=== PATIENT | female | born 1945 | race Caucasian/White ===

== ENCOUNTER → 2024-03-07 13:41 | Outpatient (REF) | payer MEDICARE, SELFPAY | LOC: WDC 13:41 | PROVIDERS: ATTENDING PHYSICIAN Family Medicine | DX: Z12.31 Encounter for screening mammogram for malignant neoplasm of breast (principal) | CPT/HCPCS: 77063; 77067 ==

== ENCOUNTER → 2024-04-21 11:31 | Outpatient (REF) | payer MEDICARE, SELFPAY | LOC: RAD 11:31 | PROVIDERS: ATTENDING PHYSICIAN Urology; FAMILY PHYSICIAN Family Medicine | DX: R31.0 Gross hematuria (principal) | CPT/HCPCS: 74178; Q9967 ==

== ENCOUNTER → 2024-05-17 09:44 | Outpatient (REF) | payer MEDICARE, SELFPAY | LOC: HWRAD 09:44 | PROVIDERS: ATTENDING PHYSICIAN Obstetrics & Gynecology Gynecology; FAMILY PHYSICIAN Family Medicine; REFERRING PHYSICIAN Urology | DX: N83.201 Unspecified ovarian cyst, right side (principal) | CPT/HCPCS: 76830; 76856 ==

== ENCOUNTER → 2024-07-07 09:34 | Outpatient (REF) | payer MEDICARE, SELFPAY ==
[2024-07-07 10:27] LABS: % Basophils 0.4 % (0-2); % Eosinophils 2.8 % (0-6); % Immature Granulocytes 0.2 % (0-0.5); % Lymphocytes 20.5 % (20.5-51.1); % Monocytes 6.1 % (1.7-9.3); Absolute Eosinophils 0.1 10^3/uL (0-0.7); Absolute Lymphocytes 0.9 10^3/uL (1.2-3.4); Absolute Monocytes 0.3 10^3/uL (0.1-0.6); Absolute Neutrophils 3.2 10^3/uL (1.4-6.5); Hematocrit 45.1 % (37.0-47.0); Hemoglobin 14.1 g/dL (12.0-16.0); Mean Corp Hgb Conc. 31.3 g/dL (33.0-37.0); Mean Corpuscular Hgb 28.4 pg (27.0-31.0); Mean Corpuscular Volume 90.7 fL (81.0-99.0); Nucleated Red Blood Cells % 0 %; Platelet Count 249 10^3/uL (130-400); Red Blood Cell Count 4.97 10^6/uL (4.20-5.40); Red Cell Dist. Width 13.8 % (11.5-14.5); White Blood Cell Count 4.6 10^3/uL (4.8-10.8)
[2024-07-07 11:01] LABS: ALT (SGPT) 18 U/L (0-35); AST (SGOT) 24 U/L (14-36); Albumin 4.1 g/dl (3.5-5.0); Alkaline Phosphatase 73 U/L (38-126); Blood Urea Nitrogen 17 mg/dl (7-17); Calcium 9.8 mg/dl (8.4-10.2); Carbon Dioxide 31 mmol/L (22-30); Chloride 104 mmol/L (98-107); Glucose 83 mg/dl (70-99); Potassium 4.8 mmol/L (3.5-5.1); Sodium 141 mmol/L (135-145); Total Bilirubin 0.5 mg/dl (0.2-1.3); Total Protein 6.8 g/dl (6.3-8.2); eGFR > 60.00
== END ==
LOC: REG 09:34
PROVIDERS: ATTENDING PHYSICIAN Obstetrics & Gynecology Gynecology
DX: N83.209 Unspecified ovarian cyst, unspecified side (principal); Z01.818 Encounter for other preprocedural examination
CPT/HCPCS: 36415; 80053; 85025; 93005

== ENCOUNTER → 2024-07-28 08:45 | Outpatient (REF) | payer MEDICARE, SELFPAY | LOC: CLAB 08:45 | PROVIDERS: ATTENDING PHYSICIAN Obstetrics & Gynecology Gynecology | DX: N83.209 Unspecified ovarian cyst, unspecified side (principal) | CPT/HCPCS: 88305; 88112 ==

== ENCOUNTER 2024-11-13 07:25 | Inpatient (IN) | payer MEDICARE, SELFPAY ==
--- NOTE | 2024-09-29 12:35 | CM ---
Addendum entered by Eileen Brewster RN 10/20/24 10:35:
Patient stated that she has not received call from PAT recruiting scheduler. CM contacted PAT recruiting scheduler and plan to call patient to make appointments today. CM updated patient.
Addendum entered by Eileen Brewster RN 09/29/24 12:39:
CM confirmed that patient's grandniece will provide transportation home and will stay with her for one night.
Original Note:
CM reviewed medical records. CM spoke with patient via live telephone. Patient confirmed demographics. Patient lives alone in a three story home. Patient had a history of VN, but does not remember the agency. Patient does not have a history of SNF.
Patient does have a cane, walker, raised toilet seat and ice gel wraps.
Patient advised that patient does not have transportation for outpatient PT and is requesting VN at home. CM advised that outpatient PT is recommended. Patient stated that she does not believe there is a difference in PT at home or outpatient.
Patient stated that she is able to drive to her appointments once she is cleared by orthopedics.
Patient is active with her PCP. Patient plans to uses [facility] in [place] for pharmacy services .
[2024-10-27 11:12] LABS: Hematocrit 42.6 % (37.0-47.0); Hemoglobin 13.9 g/dL (12.0-16.0); Mean Corp Hgb Conc. 32.6 g/dL (33.0-37.0); Mean Corpuscular Volume 89.5 fL (81.0-99.0); Platelet Count 264 10^3/uL (130-400); Red Cell Dist. Width 14.2 % (11.5-14.5)
[2024-10-27 11:37] LABS: ALT (SGPT) 32 U/L (0-35); AST (SGOT) 22 U/L (14-36); Albumin 4.4 g/dl (3.5-5.0); Alkaline Phosphatase 68 U/L (38-126); Blood Urea Nitrogen 17 mg/dl (7-17); Calcium 10.0 mg/dl (8.4-10.2); Carbon Dioxide 30 mmol/L (22-30); Chloride 107 mmol/L (98-107); Glucose 89 mg/dl (70-99); Potassium 4.3 mmol/L (3.5-5.1); Sodium 145 mmol/L (135-145); Total Protein 7.2 g/dl (6.3-8.2); eGFR > 60.00
[2024-10-27 12:20] LABS: Glycohemoglobin (HgbA1c) 5.2 % (4.0-5.6)
[2024-10-27 13:56] VITALS: BMI 26.2
[2024-10-27 14:33] VITALS: BMI 26.2
[2024-11-13] VITALS (17 sets, daily range): BP systolic 93–167; BP diastolic 45–92; BMI 26.2
[2024-11-13] MEDS: CELEBREX 200 MG PO (08:14)
[2024-11-13] MEDS: TYLENOL 650 MG PO ×4 (08:14→23:06)
[2024-11-13] MEDS: NORMOSOL-R/PLASMALYTE-A 1000 IV ×2 (08:14→13:30)
--- NOTE | 2024-11-13 12:17 | W.PN.UPDATE ---
Update Note
Progress Note Update
R knee OA s/p R TKA w/ Dr Pickett 11/13/24
- s/p L TKA w/ Dr Pickett 01/2022
DVT prophylaxis - ASA, b/l venous foot pumps
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
- IVF running. Encourage oral hydration
- Midodrine w/ SBP parameters
- Continue TEDs upon d/c
- Minimize opioids as able
HTN, diet controlled per records - monitor BP
Obstructive sleep apnea, improved with weight loss - monitor O2
- IS
- Consider supplemental O2 HS
Hypercholesterolemia
Venous varicosities with insufficiency
Mild aortic regurgitation
Chronically abnormal EKG, most recent echocardiogram stable
Ocular migraines
Scoliosis
Spinal stenosis
Thyroid nodules
Interstitial cystitis
Osteopenia
History of tobacco abuse
Per CM assessment, pt likely will need VN services upon d/c
[2024-11-13] MEDS: ROXICODONE 5 MG PO ×2 (12:59→21:10)
--- NOTE | 2024-11-13 13:30 | PTCARENOTE ---
Pt received from the PACU via bed. Transport was w/o incident. Pt is AAOx3, HRR, lungs are clear, resp. easy. Pulse ox 100%RA. Pt reports mild pain to right knee at this time, and denies nausea. VSS, Pt is afebrile. Pt's right knee with
Antibacterial dressing intact, showing a scant amount of bloody drainage. Pt instructed on plan of care. Pt verbalized understanding of instructions, call carrasco is within reach.
--- NOTE | 2024-11-13 15:00 | RR ---
A Rapid Response was called on this patient, please see Rapid Response form.
Pt was fresh post op Right Knee Arthroplasty: Arrived on [facility] at 1330. At 1500 Pt was assisted up to bedside commode by PCT. After Pt voided she turned white, unresponsive and diaphoretic. Her BP had dropped to 93/45 with a hr of 40. Pt's bp at
1330 was 161/91 hr 64. Rapid response called, pt gotten back to bed. Once Pt back to bed she aroused and able to respond to verbal stimuli. Orthopedic PA notified of incident. EKG done, Midodrine given as ordered, labs drawn. Pt now fully awake and
alert, resting in bed. Will continue to monitor closely. Call carrasco is within reach.
[2024-11-13] MEDS: FML 0.1% OPHTHALMIC SUSPENSION OPHTH ×2 (15:07→15:12)
[2024-11-13] MEDS: VITAMIN D3 (cholecalciferol) PO (15:10)
[2024-11-13] MEDS: LIPITOR PO (15:10)
[2024-11-13 15:18] LABS: Glucose - Point of Care 218 mg/dl (70-99)
[2024-11-13 15:20] LABS: Hematocrit 37.9 % (37.0-47.0); Hemoglobin 12.5 g/dL (12.0-16.0); Mean Corp Hgb Conc. 33.0 g/dL (33.0-37.0); Mean Corpuscular Volume 88.3 fL (81.0-99.0); Platelet Count 257 10^3/uL (130-400); Red Cell Dist. Width 14.6 % (11.5-14.5)
[2024-11-13 15:28] LABS: INR 1.00; PT 13.5 Sec (11.4-14.6)
[2024-11-13 15:29] LABS: APTT 24.6 Sec (23.4-35.0)
[2024-11-13 15:30] LABS: ALT (SGPT) 26 U/L (0-35); AST (SGOT) 23 U/L (14-36); Albumin 4.1 g/dl (3.5-5.0); Alkaline Phosphatase 70 U/L (38-126); Blood Urea Nitrogen 12 mg/dl (7-17); Calcium 9.5 mg/dl (8.4-10.2); Carbon Dioxide 26 mmol/L (22-30); Chloride 107 mmol/L (98-107); Estimated Creatinine Clearance 68 ml/min; Glucose 201 mg/dl (70-99); Potassium 3.9 mmol/L (3.5-5.1); Sodium 139 mmol/L (135-145); Total Protein 6.5 g/dl (6.3-8.2); eGFR > 60.00
[2024-11-13 15:41] LABS: Troponin I < 0.012 ng/ml
[2024-11-13] MEDS: ANCEF 5 IV (18:46)
[2024-11-13] MEDS: ASPIRIN 325 MG PO (18:46)
[2024-11-13] MEDS: BACTROBAN 2% OINTMENT 1 APPLIC NASAL (20:45)
[2024-11-13] MEDS: COLACE 100 MG PO (20:45)
[2024-11-13] MEDS: TYLENOL PO ×2 (20:45→23:05)
[2024-11-13] MEDS: SENOKOT 17.2 MG PO (20:45)
[2024-11-13] MEDS: DECADRON 4 MG PO (20:45)
[2024-11-13] MEDS: NEURONTIN 300 MG PO (21:10)
[2024-11-13] MEDS: PEPCID 20 MG PO (21:10)
[2024-11-14] VITALS (7 sets, daily range): BP systolic 95–128; BP diastolic 54–77; PULSE 58–96; O2SAT 94
[2024-11-14] MEDS: ANCEF 5 IV (01:45)
[2024-11-14] MEDS: TYLENOL 650 MG PO ×3 (03:07→14:03)
[2024-11-14] MEDS: VITAMIN D3 (cholecalciferol) 50 MCG PO (08:01)
[2024-11-14] MEDS: CELEBREX 200 MG PO (08:01)
[2024-11-14] MEDS: LIPITOR 20 MG PO (08:01)
[2024-11-14] MEDS: ASPIRIN 325 MG PO (08:01)
[2024-11-14] MEDS: SENOKOT 17.2 MG PO (08:02)
[2024-11-14] MEDS: DECADRON 4 MG PO (08:02)
[2024-11-14] MEDS: ROXICODONE 5 MG PO (08:02)
[2024-11-14] MEDS: BACTROBAN 2% OINTMENT 1 APPLIC NASAL (08:03)
[2024-11-14] MEDS: COLACE 100 MG PO (08:03)
[2024-11-14] MEDS: FML 0.1% OPHTHALMIC SUSPENSION 1 DROP OPHTH (08:04)
[2024-11-14] MEDS: NORMOSOL-R/PLASMALYTE-A 500 IV (10:02)
--- NOTE | 2024-11-14 10:20 | W.PN.ORTHO ---
Today's Communication / Plan
-
Monitor orthostatic VS prior to d/c.
Work w/ PT and OT as able.
D/c possible for later today if clinically stable.
Assessment
.
Distal Motor Intact: Yes
Dressing:
Small areas old bleeding along the incision line.
Assessment:
R knee OA s/p R TKA w/ Dr Pickett 11/13/24
- s/p L TKA w/ Dr Pickett 01/2022
DVT prophylaxis - ASA, b/l venous foot pumps
Syncopal episode POD 0 likely 2* orthostasis (pt previously experienced this after her L TKA in )
- + orthostasis this AM -> will order IVF bolus
- Encourage oral hydration
- Midodrine w/ SBP parameters
- Continue TEDs upon d/c
- Minimize opioids as able
- Continue to monitor orthostatic VS prior to d/c
- Of note, labs yesterday WNL. EKG relatively unchanged from prior. Tele demonstrating NSR
HTN, diet controlled per records - monitor BP
Obstructive sleep apnea, improved with weight loss - O2 stable on RA
- IS
- Consider supplemental O2 HS
Hypercholesterolemia
Venous varicosities with insufficiency
Mild aortic regurgitation
Chronically abnormal EKG, most recent echocardiogram stable
Ocular migraines
Scoliosis
Spinal stenosis
Thyroid nodules
Interstitial cystitis
Osteopenia
History of tobacco abuse
Per CM assessment, pt likely will need VN services upon d/c
Plan
.
Surgery / Date: R TKA w/ Dr Pickett 11/13/24
DVT Prophylaxis: Aspirin
Activity:
Out of bed.
PT/OT
Discharge Plan: Home w/ VN
Subjective
.
.:
Patient resting comfortably in bed this AM.
Feels well this AM and reports minimal R knee pain.
Syncope episode yesterday likely 2* orthostasis. H/o this after L TKA in .
Vital Signs and Labs
.
Vital Signs and Labs:
Lab Results
11/13/24 15:07
11/13/24 15:07
Temp Pulse Resp BP Pulse Ox
97.9 F 62 16 109/68 95
11/14/24 07:35 11/14/24 07:35 11/14/24 07:35 11/14/24 07:35 11/14/24 07:35
PT 13.5 Sec (11.4-14.6) 11/13/24 15:07
INR 1.00 11/13/24 15:07
Non-invasive Hgb result: 11.0
Physical Exam
-
HEENT: No pallor, cyanosis, or jaundice. Throat clear.
NECK: Supple. No JVD.
RESPIRATORY: Lungs clear to auscultation.
CVS: S1, S2 normal. RRR.�
ABDOMEN: Soft, non-tender. No distension.
EXTREMITIES: Expected post-surgical R knee edema. Strength equal, no calf pain with palpation/dorsiflexion. Calves soft.
TIMBER POISONER: AOx3. No focal deficits. platform loader grossly intact
--- NOTE | 2024-11-14 10:48 | CM ---
Reviewed the chart notes and spoke with the patient at the bedside. IMM reviewed. Patient's niece will provide transportation home. Discuss area VNs with the patient. Patient selected VN. Referral sent via [facility]. continues to be
available to patient/family and is monitoring medical plan for needs at discharge.
Plan: Discharge to home with VN services.
--- NOTE | 2024-11-14 12:37 | VNURNOTE ---
Home Health Liaison met with patient at bedside to discuss [facility] nurse/therapy, visits, schedule and homebound status. Patient is agreeable and understands that visits at home will be 2-3 x per week to assess and teach medical management.
Patient is aware that [facility] will contact them for start of care in 1-2 days after discharge from .
[facility] referral accepted in [facility].
--- NOTE | 2024-11-14 15:35 | W.PN.UPDATE ---
Update Note
Progress Note Update
Recent orthostatic VS after IVF bolus, Midodrine stable.
BP lying 109/45. Standing 116/56. Standing 115/67.
Patient was able to work w/ PT and OT efficiently. Only reported some tiredness with activity.
VS throughout PT and OT sessions stable.
Patient able to be d/c today w/ VN and home PT initially.
She is aware to adequately hydrate, minimize opioids, and wear her TEDs for BP stability.
--- NOTE | 2024-11-14 15:41 | W.DS.TRANS ---
DC Summary - Electrical Solderer
-
Discharge Instructions:
Sleep Apnea Risk Low
Discharge Diagnosis/Procedures R knee OA s/p R TKA w/ Dr Pickett 11/13/24
Diet Regular
Additional Diets Adequate hydration, minimize opioids, and wear
TEDs stockings to prevent low blood pressure/
dizziness.
Activity With Walker,As tolerated
Driving Restrictions Not until seen by your Dr
Bathing Restrictions OK to Shower
Other Services VN,PT
Wound Care Dressing to be removed 1 week post-surgery.
Shelby to be removed at 2 week follow-up with
surgeon's office.
Instructions:
Stand-Alone Forms: Total Hip/Knee Replacement D/C
Changes to Home Medications: Yes
Discharge Medications:
DC Medications w/original date entered in [employer]
cholecalciferol (vitamin D3) 50 mcg (2,000 unit) capsule (Vitamin D3) 2,000 unit PO DAILY Supplement 12/31/21
Ellura 1 dose PO DAILY 10/26/24
atorvastatin 20 mg tablet 20 mg PO DAILY 10/26/24
fluorometholone 0.1 % eye drops,suspension 1 drp ophthalmic (eye) DAILY post corneal transplant 10/26/24
dexamethasone 4 mg tablet 4 mg PO BID inflammation #6 tabs 10/27/24
famotidine 20 mg tablet 20 mg PO HS GI prophylaxis #30 tabs 10/27/24
gabapentin 300 mg capsule 300 mg PO HS sleep/pain #10 caps 10/27/24
mupirocin 2 % topical ointment 1 applic topical BID infection prevention #1 tube 10/27/24
ondansetron 4 mg disintegrating tablet 4 mg PO Q6H PRN n/v #20 tabs 10/27/24
oxycodone 5 mg tablet 5 mg PO Q6H PRN 1 tab moderate pain, 2 tabs severe pain #30 tabs 10/27/24
scopolamine base 1 mg over 3 days transdermal patch 1 patch transdermal ONCE #1 ea 10/27/24
acetaminophen 500 mg capsule 1,000 mg (2 x 500 mg) PO Q6H #30 caps 11/14/24
aspirin 325 mg tablet 325 mg PO DAILY #30 tabs 11/14/24
celecoxib 200 mg capsule 200 mg PO DAILY #14 caps 11/14/24
docusate sodium 100 mg capsule 100 mg PO BID #30 caps 11/14/24
sennosides 8.6 mg tablet (Symone-lindsey) 17.2 mg (2 x 8.6 mg) PO BID #30 tabs 11/14/24
Home Medication Changes
dexamethasone 4 mg tablet 4 mg PO BID inflammation #6 tabs 10/27/24
famotidine 20 mg tablet 20 mg PO HS GI prophylaxis #30 tabs 10/27/24
gabapentin 300 mg capsule 300 mg PO HS sleep/pain #10 caps 10/27/24
mupirocin 2 % topical ointment 1 applic topical BID infection prevention #1 tube 10/27/24
ondansetron 4 mg disintegrating tablet 4 mg PO Q6H PRN n/v #20 tabs 10/27/24
oxycodone 5 mg tablet 5 mg PO Q6H PRN 1 tab moderate pain, 2 tabs severe pain #30 tabs 10/27/24
acetaminophen 500 mg capsule 1,000 mg (2 x 500 mg) PO Q6H #30 caps 11/14/24
aspirin 325 mg tablet 325 mg PO DAILY #30 tabs 11/14/24
celecoxib 200 mg capsule 200 mg PO DAILY #14 caps 11/14/24
docusate sodium 100 mg capsule 100 mg PO BID #30 caps 11/14/24
sennosides 8.6 mg tablet (Symone-lindsey) 17.2 mg (2 x 8.6 mg) PO BID #30 tabs 11/14/24
Pending Results: No
[2024-11-14] MEDS: TYLENOL PO (16:00)
== END 2024-11-14 17:30 | disposition home health service (06) | DRG 470 ==
LOC: 2 SOUTH 07:25
PROVIDERS: ADMITTING PHYSICIAN Specialist; FAMILY PHYSICIAN Family Medicine
PROC: 0SRC0J9 Replacement of Right Knee Joint with Synthetic Substitute, Cemented, Open Approach (ICD-10-PCS; 2024-11-13)
DX: M17.11 Unilateral primary osteoarthritis, right knee (principal); R21 Rash and other nonspecific skin eruption; I95.1 Orthostatic hypotension; I10 Essential (primary) hypertension; G47.33 Obstructive sleep apnea (adult) (pediatric); E78.5 Hyperlipidemia, unspecified; I87.2 Venous insufficiency (chronic) (peripheral); M48.00 Spinal stenosis, site unspecified; M85.80 Other specified disorders of bone density and structure, unspecified site; N30.10 Interstitial cystitis (chronic) without hematuria; Z59.82 Transportation insecurity; Z87.891 Personal history of nicotine dependence; Z79.899 Other long term (current) drug therapy
CPT/HCPCS: 36415; 73560; 80053; 82962; 83036; 84484; 85027; 85610; 85730; 87070; 93005; 97110; 97116; 97162; 97166; 97530; 97535; C1713; C1776

== ENCOUNTER → 2025-01-26 10:05 | Outpatient (REF) | payer MEDICARE, SELFPAY | LOC: HWRCS 10:05 | PROVIDERS: ATTENDING PHYSICIAN Family Medicine | DX: I35.1 Nonrheumatic aortic (valve) insufficiency (principal) | CPT/HCPCS: 93306 ==